=== PATIENT | female | born 1975 | race Caucasian/White ===

== ENCOUNTER 2018-05-19 14:17 | Emergency (ER) | payer OTHER ==
--- NOTE | 2018-05-19 14:44 | ED ---
Chest Pain HPI - General Chief Complaint: Recheck/Abnormal Lab/Rx Stated Complaint: Rib pain/coughing Time Seen by Provider: 05/19/18 14:28 Source: patient, RN notes reviewed, old records reviewed Mode of arrival: ambulatory Limitations: no limitations - History of Present Illness Initial Comments: This is a 43-year-old female the ER for bilateral rib pain secondary to coughing. Patient is a smoker with recent diagnosis of bronchitis, she did treat with course of steroids and breathing treatments, smoke. Coughing is severe and causing bilateral pain when she coughs. Otherwise she denies significant chest pain or shortness of breath, no exertional shortness of breath or dyspnea. No history of DVT no travel history no sick contacts. No current fevers. She does have continuous cough with no help with modifying over -the-counter medication MD Complaint: chest pain (Bilateral ribs) -: week(s) Onset: other (With coughing) Pain Location: left chest, right chest Pain Radiation: none Severity: mild Severity scale (1-10): 3 Quality: aching Consistency: intermittent Improves With: nothing Worsens With: other (Coughing) Other Symptoms: cough - Related Data Home Medications Medication Instructions Recorded Confirmed Albuterol Inhaler [Ventolin Hfa 2 puff INHALATION RT-Q4H 05/19/18 05/19/18 Inhaler] Ibuprofen [Motrin] 800 mg PO DAILY 05/19/18 05/19/18 Multivitamins, Thera [Multivitamin 1 tab PO 05/19/18 (formulary)] Nyquil (Unknown) 1 dose PO HS 05/19/18 Previous Rx's Medication Instructions Recorded Benzonatate [Tessalon Perles] 100 mg PO TID PRN #15 capsule 05/19/18 Ciprofloxacin HCl [Cipro] 500 mg PO Q12HR #14 tablet 05/19/18 Naproxen [Naprosyn] 500 mg PO Q12HR PRN #30 tab 05/19/18 Allergies Allergy/AdvReac Type Severity Reaction Status Date / Time No Known Allergies Allergy Verified 05/19/18 15:06 Review of Systems ROS Statement: Those systems with pertinent positive or pertinent negative responses have been documented in the HPI. ROS Other: All systems not noted in ROS Statement are negative. Past Medical History Past Medical History: No Reported History History of Any Multi-Drug Resistant Organisms: None Reported Additional Past Surgical History / Comment(s): ovarian cyst Past Psychological History: No Psychological Hx Reported Smoking Status: Current every day smoker Past Alcohol Use History: Occasional Past Drug Use History: None Reported General Exam Limitations: no limitations General appearance: alert, in no apparent distress Head exam: Present: atraumatic, normocephalic, normal inspection Eye exam: Present: normal appearance, PERRL, EOMI. Absent: scleral icterus, conjunctival injection, periorbital swelling ENT exam: Present: normal exam, mucous membranes moist Neck exam: Present: normal inspection. Absent: tenderness, meningismus, lymphadenopathy Respiratory exam: Present: normal lung sounds bilaterally. Absent: respiratory distress, wheezes, rales, rhonchi, stridor Cardiovascular Exam: Present: regular rate, normal rhythm, normal heart sounds. Absent: systolic murmur, diastolic murmur, rubs, gallop, clicks GI/Abdominal exam: Present: soft, normal bowel sounds. Absent: distended, tenderness, guarding, rebound, rigid Extremities exam: Present: normal inspection, full ROM, normal capillary refill. Absent: tenderness, pedal edema, joint swelling, calf tenderness Back exam: Present: normal inspection Neurological exam: Present: alert, oriented X3, CN II-XII intact Psychiatric exam: Present: normal affect, normal mood Skin exam: Present: warm, dry, intact, normal color. Absent: rash Course Vital Signs 05/19/18 05/19/18 05/19/18 14:22 14:36 16:00 Temperature 97.7 F 97.8 F Pulse Rate 94 88 Respiratory 20 22 16 Rate Blood Pressure 123/91 127/65 O2 Sat by Pulse 99 98 Oximetry Chest Pain MDM - MDM 43 female the ER with nonspecific chest pain, tenderness to bilateral ribs, is negative for acute disease, patient has pain control here in the ER, we'll adjust antibiotics for outpatient bronchitis and patient can be discharged home Disposition Clinical Impression: Acute bronchitis Disposition: HOME SELF-CARE Condition: Good Instructions: How to Stop Smoking (ED), Acute Bronchitis (ED) Prescriptions: Benzonatate [Tessalon Perles] 100 mg PO TID PRN #15 capsule PRN Reason: Cough Ciprofloxacin HCl [Cipro] 500 mg PO Q12HR #14 tablet Naproxen [Naprosyn] 500 mg PO Q12HR PRN #30 tab PRN Reason: Pain Is patient prescribed a controlled substance at d/c from ED?: No Referrals: Preston Gray MD [Primary Care Provider] - 1-2 days
[2018-05-19] MEDS ORDERED: KETOROLAC 60 MG/2 ML VIAL IM STA (15:19)
[2018-05-19] MEDS ORDERED: BENZONATATE 100 MG CAP PO STA (15:19)
[2018-05-19] MEDS ORDERED: ACET/COD 300 MG/30 MG STARTER PACK 6 TAB BTL PO STA (15:19)
[2018-05-19] MEDS ORDERED: Acetaminophen-Codeine 300-30mg TAB PO STA (15:19)
--- NOTE | 2018-05-19 15:27 | XR ---
EXAMINATION TYPE: XR ribs bilat w pa chest xray DATE OF EXAM: 05/19/2018 COMPARISON: NONE HISTORY: Pain TECHNIQUE: Single view of the chest 8 views of the ribs are submitted. FINDINGS: The lungs are clear. No Evidence for pneumothorax. No evidence for focal contusion. Medi astinal structures are midline. Evaluation of the ribs fails to demonstrate evidence for displaced r ib fracture or secondary sign of rib fracture. IMPRESSION: No evidence for pneumothorax or displaced rib fracture at this time. No contusive change seen
[2018-05-19 16:01] VITALS: BP 127/65; PULSE 88; RESP 16; TEMP 97.8
--- NOTE | 2018-05-20 03:51 | CDI ---
Documentation Clarification OP Dear Prince BAUMAN, DO Please do addendum to ED report for HPI , Physical exam and MDM. Thank you, Ayad Peck Rip Tailer If you have any question, Please contact clinical manager home care at [phone] [facility]
== END 2018-05-19 15:55 | disposition home or self-care (01) ==
LOC: EC 14:17
DX: J20.9 Acute bronchitis, unspecified (principal); F17.200 Nicotine dependence, unspecified, uncomplicated; Z79.899 Other long term (current) drug therapy
CPT/HCPCS: 71111; 99284; 96372; J1885

== ENCOUNTER 2023-11-02 00:32 | Emergency (ER) | payer OTHER ==
--- NOTE | 2023-11-02 01:38 | XR ---
EXAM: XR Abdomen, 1 View CLINICAL HISTORY: ITS.REASON XR Reason: abdominal pain TECHNIQUE: Frontal supine view of the abdomen/pelvis. COMPARISON: No relevant prior studies available. FINDINGS: Gastrointestinal tract: No dilation. Paucity of bowel gas. Bones/joints: No acute fracture. No dislocation. IMPRESSION: No acute findings.
[2023-11-02 01:43] VITALS: TEMP 98.2
[2023-11-02 01:43] LABS: Basophils # (A) 0.1 k/uL (0-0.2); Basophils % (A) 0 %; Eosinophils # (A) 0.6 k/uL (0-0.7); Eosinophils % (A) 4 %; HCT 43.7 % (34.0-46.0); HGB 14.3 gm/dL (11.4-16.0); Lymphocytes # (A) 3.2 k/uL (1.0-4.8); Lymphocytes % (A) 24 %; MCH 30.7 pg (25.0-35.0); MCHC 32.6 g/dL (31.0-37.0); MCV 94.1 fL (80.0-100.0); Mean Platelet Volume 8.3; Monocytes # (A) 0.6 k/uL (0-1.0); Monocytes % (A) 5 %; Neutrophils # (A) 8.8 k/uL (1.3-7.7); Neutrophils % (A) 65 %; Platelet Count 266 k/uL (150-450); RBC 4.65 m/uL (3.80-5.40); RDW 12.7 % (11.5-15.5); WBC 13.4 k/uL (3.8-10.6)
[2023-11-02 01:48] LABS: ALT 16 U/L (4-34); AST 24 U/L (14-36); African American GFR (CKD) >90 (>60 ml/min/1.73 sqM); Alkaline Phosphatase 91 U/L (38-126); Amylase 60 U/L (30-110); Anion Gap 7 mmol/L; Blood Urea Nitrogen 14 mg/dL (7-17); Calcium 9.3 mg/dL (8.4-10.2); Carbon Dioxide 20 mmol/L (22-30); Chloride 109 mmol/L (98-107); Glucose 109 mg/dL (74-99); Lipase 205 U/L (23-300); Non-African American GFR(CKD) 87 (>60 ml/min/1.73 sqM); Sodium 136 mmol/L (137-145); Total Bilirubin 0.5 mg/dL (0.2-1.3); Total Protein 6.8 g/dL (6.3-8.2)
[2023-11-02 02:24] VITALS: RESP 18
--- NOTE | 2023-11-02 03:28 | ED ---
Abdominal Pain HPI - General Chief Complaint: Abdominal Pain Stated Complaint: abd pain NV Time Seen by Provider: 11/02/23 02:01 Source: patient Mode of arrival: wheelchair Limitations: no limitations - History of Present Illness Initial Comments: 48-year-old female presenting to the ED with complaints of abdominal pain. Patient reports prior history of "gallbladder attacks". Today, reports after dinner started to have pain in her right upper abdomen/upper abdomen with some associated nausea, no vomiting. Reports that this feels similar to prior a ttacks. At initial onset, patient reports pain was at a 12 out of 10 in severity however upon evaluation here reports pain is gradually improving and is now at a 4-5 out of severity. No changes in bowel or bladder habits. No fever or chills. No chest pain shortness of breath. No other complaints at this time. - Related Data Home Medications Medication Instructions Recorded Confirmed Albuterol Inhaler [Ventolin Hfa 2 puff INHALATION RT-Q4H 05/19/18 05/19/18 Inhaler] Ibuprofen [Motrin] 800 mg PO DAILY 05/19/18 05/19/18 Multivitamins, Thera [Multivitamin 1 tab PO 05/19/18 (formulary)] Nyquil (Unknown) 1 dose PO HS 05/19/18 Previous Rx's Medication Instructions Recorded Benzonatate [Tessalon Perles] 100 mg PO TID PRN #15 capsule 05/19/18 Ciprofloxacin HCl [Cipro] 500 mg PO Q12HR #14 tablet 05/19/18 Naproxen [Naprosyn] 500 mg PO Q12HR PRN #30 tab 05/19/18 Ondansetron Odt [Zofran Odt] 4 mg PO Q8HR PRN #10 tab 11/02/23 Allergies Allergy/AdvReac Type Severity Reaction Status Date / Time No Known Allergies Allergy Verified 11/02/23 00:50 Review of Systems ROS Statement: Those systems with pertinent positive or pertinent negative responses have been documented in the HPI. ROS Other: All systems not noted in ROS Statement are negative. Past Medical History Past Medical History: No Reported History History of Any Multi-Drug Resistant Organisms: None Reported Additional Past Surgical History / Comment(s): ovarian cyst Past Psychological History: No Psychological Hx Reported Smoking Status: Current every day smoker Past Alcohol Use History: Occasional Past Drug Use History: None Reported General Exam Limitations: no limitations General appearance: alert, in no apparent distress Eye exam: Present: normal appearance Neck exam: Present: normal inspection Respiratory exam: Present: normal lung sounds bilaterally Cardiovascular Exam: Present: regular rate GI/Abdominal exam: Present: soft (Epigastric and right upper tenderness to palpation. Negative Rangel sign. Bowel sounds active.) Neurological exam: Present: alert, oriented X3 Skin exam: Present: warm, dry Course Vital Signs 11/02/23 11/02/23 11/02/23 00:50 02:06 03:41 Temperature 98.2 F Pulse Rate 75 69 81 Respiratory 24 18 18 Rate Blood Pressure 137/87 137/86 144/85 O2 Sat by Pulse 98 92 L 97 Oximetry Medical Decision Making - Medical Decision Making Was pt. sent in by a medical professional or institution ([facility], [facility], urgent care, hospital, or [facility]...) When possible be specific @ -No Did you speak to anyone other than the patient for history (EMS, parent, family, police, friend...)? What history was obtained from this source @ -No Did you review nursing and triage notes (agree or disagree)? Why? @ -I reviewed and agree with nursing and triage notes Were old charts reviewed (outside hosp., previous admission, EMS record, old EKG, old radiological studies, urgent care reports/EKG's, [facility] records)? Report findings @ -No old charts were reviewed Differential Diagnosis (chest pain, altered mental status, abdominal pain women, abdominal pain men, vaginal bleeding, weakness, fever, dyspnea, syncope, headache, dizziness, GI bleed, back pain, seizure, CVA, palpatations, mental health, musculoskeletal)? @ -Differential Abdominal Pain Women: Appendicitis, Cholecystitis, diverticulosis, ischemic bowel, pancreatitis, hepatitis, UTI, gastroenteritis, AAA, incarcerated hernia, bowel obstruction, constipation, inflammatory bowel, hepatitis, peptic ulcer disease, splenic infarction, perforated viscus, vulvitis, ovarian torsion, PID, kidney stone, placenta abruption, this is not meant to be an all-inclusive list EKG interpreted by me (3pts min.). @ -None X-rays interpreted by me (1pt min.). @ -X-ray of the abdomen interpreted me which revealed no evidence of acute finding. CT interpreted by me (1pt min.). @ -None done U/S interpreted by me (1pt. min.). @ -None done What testing was considered but not performed or refused? (CT, X-rays, U/S, labs)? Why? @ -None What meds were considered but not given or refused? Why? @ -None Did you discuss the management of the patient with other professionals (professionals i.e. ., PA, [facility] ST[facility]ARD, lab, RT, psych nurse, social worker health services, mammography technologist, teacher, customs and border protection officer, dependency case manager)? Give summary @ -No Was smoking cessation discussed for >3mins.? @ -No Was critical care preformed (if so, how long)? @ -No Were there social determinants of health that impacted care today? How? (Homelessness, low income, unemployed, alcoholism, drug addiction, transportation, low edu. Level, literacy, decrease access to med. care, penitentiary, rehab)? @ -No Was there de-escalation of care discussed even if they declined (Discuss DNR or withdrawal of care, Hospice)? DNR status @ -No What co-morbidities impacted this encounter? (DM, HTN, Smoking, COPD, CAD, Cancer, CVA, ARF, Chemo, Hep., AIDS, mental health diagnosis, sleep apnea, morbid obesity)? @ -None Was patient admitted / discharged? Hospital course, mention meds given and route, prescriptions, significant lab abnormalities, going to OR and other pertinent info. @ -Discharge 48-year-old female presenting to the ED with a chief complaint of abdominal pain. Reports pain seems similar to prior "gallbladder attacks". Laboratory studies reviewed. Labs including CBC, CMP, amylase, lipase unremarkable. Upon obtaining history, patient reports pain is gradually improving. Patient provided analgesics and IV fluids here and reports pain has resolved. Discharged home in stable condition and advised close follow-up with her PCP for an ultrasound of her gallbladder. Discussed strict return precautions with patient who verbalized agreement. Undiagnosed new problem with uncertain prognosis? @ -No Drug Therapy requiring intensive monitoring for toxicity (Heparin, Nitro, Insulin, Cardizem)? @ -No Were any procedures done? @ -No Diagnosis/symptom? @ -Abdominal pain Acute, or Chronic, or Acute on Chronic? @ -Acute Uncomplicated (without systemic symptoms) or Complicated (systemic symptoms)? @ -Uncomplicated Side effects of treatment? @ -No Exacerbation, Progression, or Severe Exacerbation? @ -No Poses a threat to life or bodily function? How? (Chest pain, [place], [place], pneumonia, PE, COPD, DKA, ARF, appy, cholecystitis, CVA, Diverticulitis, Homicidal, Suicidal, threat to staff... and all critical care pts) @ -No - Lab Data Result diagrams: 11/02/23 01:10 11/02/23 01:10 Lab Results 11/02/23 11/02/23 11/02/23 Range/Units 01:10 01:10 01:10 WBC 13.4 H (3.8-10.6) k/uL RBC 4.65 (3.80-5.40) m/uL Hgb 14.3 (11.4-16.0) gm/dL Hct 43.7 (34.0-46.0) % MCV 94.1 (80.0-100.0) fL MCH 30.7 (25.0-35.0) pg MCHC 32.6 (31.0-37.0) g/dL RDW 12.7 (11.5-15.5) % Plt Count 266 (150-450) k/uL MPV 8.3 Neutrophils % 65 % Lymphocytes % 24 % Monocytes % 5 % Eosinophils % 4 % Basophils % 0 % Neutrophils # 8.8 H (1.3-7.7) k/uL Lymphocytes # 3.2 (1.0-4.8) k/uL Monocytes # 0.6 (0-1.0) k/uL Eosinophils # 0.6 (0-0.7) k/uL Basophils # 0.1 (0-0.2) k/uL Sodium 136 L (137-145) mmol/L Potassium 4.0 (3.5-5.1) mmol/L Chloride 109 H (98-107) mmol/L Carbon Dioxide 20 L (22-30) mmol/L Anion Gap 7 mmol/L BUN 14 (7-17) mg/dL Creatinine 0.80 (0.52-1.04) mg/dL Est GFR (CKD-EPI)AfAm >90 (>60 ml/min/1.73 sqM) Est GFR (CKD-EPI)NonAf 87 (>60 ml/min/1.73 sqM) Glucose 109 H (74-99) mg/dL Plasma Lactic Acid Medhat 0.6 L (0.7-2.0) mmol/L Calcium 9.3 (8.4-10.2) mg/dL Total Bilirubin 0.5 (0.2-1.3) mg/dL AST 24 (14-36) U/L ALT 16 (4-34) U/L Alkaline Phosphatase 91 (38-126) U/L Total Protein 6.8 (6.3-8.2) g/dL Albumin 4.0 (3.5-5.0) g/dL Amylase 60 (30-110) U/L Lipase 205 (23-300) U/L Disposition Clinical Impression: Abdominal pain Disposition: HOME SELF-CARE Condition: Good Additional Instructions: Please return to the Emergency Department if symptoms worsen or any other concerns. Please follow-up with your primary care provider. Please have a ultrasound performed Is patient prescribed a controlled substance at d/c from ED?: No Referrals: Preston Gray MD [Primary Care Provider] - 1-2 days Time of Disposition: 03:33
[2023-11-02] MEDS: ONDANSETRON 4 MG/2 ML VIAL IVP STA (03:32)
[2023-11-02] MEDS: SODIUM CHLORIDE 0.9% 1,000 ML IV STA (03:32)
[2023-11-02] MEDS: MORPHINE SULFATE 4 MG/ML SYRINGE IVP STA (03:37)
[2023-11-02 03:43] VITALS: BP 144/85; PULSE 81
[2023-11-02] MEDS: ACET/COD 300 MG/30 MG STARTER PACK 6 TAB BTL PO STA (04:05)
[2023-11-02] MEDS: ONDANSETRON 4 MG ODT STARTER PACK 2 TAB BTL PO STA (04:05)
== END 2023-11-02 04:25 | disposition home or self-care (01) ==
LOC: EC 00:32
DX: R10.11 Right upper quadrant pain (principal); R10.13 Epigastric pain; F17.200 Nicotine dependence, unspecified, uncomplicated
CPT/HCPCS: 36415; 80053; 82150; 83605; 83690; 85025; 74018; 99284; 96374; 96375; 96361; J2270; J2405; S0119